=== PATIENT | female | born 1990 | race African-American/Black ===

== ENCOUNTER 2017-06-19 10:19 | Emergency (ER) | payer OTHER ==
[2017-06-19 10:31] VITALS: BP 145/89
[2017-06-19] MEDS ORDERED: HYDROCODONE/ACETAMINOPHEN 5-325 MG TABLET PO ONE (10:41)
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
== END 2017-06-19 13:30 | disposition home or self-care (01) ==
LOC: ER 10:19
DX: S63.91XA Sprain of unspecified part of right wrist and hand, initial encounter (principal); S53.401A Unspecified sprain of right elbow, initial encounter; S29.012A Strain of muscle and tendon of back wall of thorax, initial encounter; M54.2 Cervicalgia; V49.40XA Driver injured in collision with unspecified motor vehicles in traffic accident, initial encounter; W22.11XA Striking against or struck by driver side automobile airbag, initial encounter; M54.89 Other dorsalgia; M25.551 Pain in right hip; M25.561 Pain in right knee; M25.562 Pain in left knee; M25.519 Pain in unspecified shoulder; R03.0 Elevated blood-pressure reading, without diagnosis of hypertension
CPT/HCPCS: 99284; 81025; 73080; 73130; 73502; 73560; L3650; L0120

== ENCOUNTER → 2018-06-12 | Outpatient (CLI) | payer OTHER ==
[2018-06-12 20:09] LABS: RBCS (WET MOUNT) NO RBCS SEEN; T.VAGINALIS (WET MOUNT) NO TRICHOMONAS SEEN; WBCS (WET MOUNT) 1+ WBCS SEEN; YEAST (WET MOUNT) NO YEAST SEEN
[2018-06-12 20:10] LABS: BACTERIA (WET MOUNT) 3+ BACTERIA SEEN; EPITHELIALS (WET MOUNT) 3+ EPITHELIALS SEEN
[2018-06-13 19:46] LABS: CHLAM PCR NOT DETECTED (NOT DETECT); GON PCR NOT DETECTED (NOT DETECT)
== END ==
LOC: LAB 19:45
PROVIDERS: ATTEND Nurse Practitioner Acute Care
DX: N89.8 Other specified noninflammatory disorders of vagina (principal); Z72.51 High risk heterosexual behavior
CPT/HCPCS: 87210; 87491; 87591